=== PATIENT | male | born 1985 | race Caucasian/White ===

== ENCOUNTER 2018-11-04 18:41 | Emergency (ER) | payer OTHER, MEDICAID ==
[~2018-11-04] VITALS: Ht 172.7 cm; Wt 95.3 kg
[2018-11-04 18:48] VITALS: BP 146/88
[2018-11-04] MEDS ORDERED: QUET25TA PO (18:55)
--- NOTE | 2018-11-04 18:56 | NUR ---
PT AMB TO ER BED 6
--- NOTE | 2018-11-04 19:21 | NUR ---
PT PRESENTS TO ED WITH C/O LEFT UPPER/LOWER LIP NUMBNESS/PAIN SINCE TODAY. PT STATES PAIN IS 10/10 AT THIS TIME. PT IS ALERT AND ORIENTED TO PERSON, PLACE, TIME AND EVENT. PUPILS EQUAL AND REACTIVE TO LIGHT BILATERALLY. NO FACIAL DROOP NOTED. CLEAR SPEECH NOTED. BILATERAL HAND MANUFACTURERS AGENT EQUAL. BILATERAL FOOT PUSH EQUAL. VSS. BED LOCKED AND IN LOWEST POSTION; ERMD TO EVALUATE PT. MEDHX: RICHARDSON'S PALSY, SCHIZOPHRENIA, DEPRESSION AND ANXIETY.
--- NOTE | 2018-11-04 19:25 | NUR ---
REPORT GIVEN TO MINISTERIO LERNER. TRANSFER OF CARE AT THIS TIME.
--- NOTE | 2018-11-04 19:26 | NUR ---
RECEIVED REPORT FROM MINISTEIRO NUNEZ. TRANSFER OF CARE AT THIS TIME.
--- NOTE | 2018-11-04 20:00 | NUR ---
LAB AT BEDSIDE.
[2018-11-04 20:08] LABS: BASOPHILS # (AUTO) 0.1 K/uL (0.00-0.22); BASOPHILS % (AUTO) 1.2 % (0.0-2.0); EOSINOPHILS # (AUTO) 0.2 K/uL (0-0.4); EOSINOPHILS % (AUTO) 2.8 % (0.0-4.0); HEMATOCRIT 46.5 % (36-52); HEMOGLOBIN 15.9 g/dL (12.0-18.0); LYMPHOCYTES # (AUTO) 2.5 K/uL (2.0-11.5); LYMPHOCYTES % (AUTO) 37.5 % (20.5-51.1); MEAN CORPUSCULAR HEMOGLOBIN 31 pg (27-31); MEAN CORPUSCULAR HGB CONC 34 g/dL (33-37); MEAN CORPUSCULAR VOLUME 89.9 fL (80-94); MONOCYTES # (AUTO) 0.6 K/uL (0.8-1.0); MONOCYTES % (AUTO) 9.4 % (1.7-9.3); NEUTROPHILS # (AUTO) 3.3 K/uL (1.8-7.7); NEUTROPHILS % (AUTO) 49.1 % (42.2-75.2); PLATELET COUNT (AUTO) 181 K/uL (140-450); RED BLOOD CELL COUNT(AUTO) 5.17 MIL/uL (4.20-6.10); RED CELL DISTRIBUTION WIDTH 12.9 % (11.6-13.7); WHITE BLOOD COUNT (AUTO) 6.7 K/uL (4.8-10.8)
[2018-11-04 20:20] LABS: ANION GAP 14.3 (8-16); CARBON DIOXIDE 26.8 mmol/L (21-32); CREATININE 0.9 mg/dL (0.7-1.3); POTASSIUM 4.1 mmol/L (3.5-5.1)
[2018-11-04 20:26] LABS: TOTAL BILIRUBIN 0.4 mg/dL (0.0-1.0)
--- NOTE | 2018-11-04 21:46 | NUR ---
Upon discharging patient, pt refusing to be discharged. Pt requesting a second opinion. 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 Pt was advised Lechuga was diagnosing him with paraesthesia. Dr. Dean made aware and will examine patient. Pt made aware and agreed to plan of care at this time.
--- NOTE | 2018-11-04 21:57 | NUR ---
PA ROMAN WITH PT
--- NOTE | 2018-11-04 22:00 | NUR ---
Lechuga at bedside speaking with patient.
[2018-11-04 22:10] VITALS: BP 120/80
== END 2018-11-04 22:10 | disposition home or self-care (01) ==
LOC: MED 18:41
DX: R20.2 Paresthesia of skin (principal); R68.84 Jaw pain; F20.9 Schizophrenia, unspecified; F41.9 Anxiety disorder, unspecified; F32.9 Major depressive disorder, single episode, unspecified; G51.0 Bell's palsy; Z79.899 Other long term (current) drug therapy
CPT/HCPCS: 36415; 80053; 85025; 99283